=== PATIENT | female | born 1960 | race Caucasian/White ===

== ENCOUNTER 2017-04-11 07:49 | Emergency (ER) | payer SELFPAY ==
[~2017-04-11] VITALS: Ht 165.1 cm; Wt 70.3 kg
[2017-04-11 08:12] VITALS: BP 141/105
== END 2017-04-11 08:12 | disposition home or self-care (01) ==
LOC: ED 07:49
DX: Z76.0 Encounter for issue of repeat prescription (principal); I10 Essential (primary) hypertension